=== PATIENT | male | born 1960 | race Caucasian/White ===

== ENCOUNTER 2017-04-09 09:59 | Outpatient (CLI) | payer MEDICARE ==
[2017-04-09] MEDS ORDERED: Iopamidol 370 76% 100 ML VIAL ONE (15:02)
--- NOTE | 2017-04-09 15:03 | CT ---
CT CHEST WITH IV CONTRAST: Date: 04/09/17 HISTORY: Follow-up, neoplasm of overlapping sites of oropharynx, squamous cell carcinoma head/neck. COMPARISON: 01/17/17. FINDINGS: Mediastinal lymphadenopathy is stable with the largest lymph node measuring about 2.9 cm. No hilar o r axillary mass or lymphadenopathy seen. No pleural or pericardial effusions are identified. Scarrin g is seen predominantly in the right upper lobe. The patchy infiltrates in the lower and mid lung zo homero have improved in the interim. There is a stable 6.0 mm parenchymal nodule in the right upper lob e. Postop changes in the stomach are again seen in the upper abdominal tomograms. There are degenerativ e changes in the spine. IMPRESSION: Interval improvement in the lung infiltrates since 01/17/17. POS: [facility]
== END 2017-04-09 10:00 | disposition home or self-care (01) ==
LOC: CT 09:59
PROVIDERS: ATTEND Internal Medicine Hematology & Oncology
DX: C10.8 Malignant neoplasm of overlapping sites of oropharynx (principal); C32.8 Malignant neoplasm of overlapping sites of larynx
CPT/HCPCS: 71260

== ENCOUNTER 2018-08-16 00:39 | Outpatient (CLI) | payer MEDICARE ==
[2018-08-16 12:16] LABS: Hemoglobin 11.7 g/dL (14.0-18.0); Mean Corpuscular HGB CONC 32.8 g/dL (32.0-36.0); Mean Corpuscular Hemoglobin 29.6 pg (27.0-31.0); Mean Corpuscular Volume 90.3 fL (78.0-98.0); Mean Platelet Volume 6.9 fL (7.4-10.4); Platelet Count 238 thou/uL (130-400); RBC Distribution Width 12.3 % (11.5-14.5); Red Blood Cell (RBC) Count 3.95 mill/uL (4.70-6.10); White Blood Cell (WBC) Count 4.3 thou/uL (4.8-10.8)
[2018-08-16 12:39] LABS: Anion Gap 12 mmol/L (10-20); BUN (Urea Nitrogen) 9 mg/dL (8.4-25.7); Calc. Creatinine Clearance 0 mL/min (70-130); Calcium 9.7 mg/dL (7.8-10.44); Carbon Dioxide 28 mmol/L (22-29); Chloride 102 mmol/L (98-107); Estimated GFR-MDRD Greater than 90; Glucose 131 mg/dL (70-105); Potassium 4.5 mmol/L (3.5-5.1); Sodium 137 mmol/L (136-145)
== END 2018-08-16 00:40 | disposition home or self-care (01) ==
LOC: LABBT 00:39
PROVIDERS: ATTEND Neurological Surgery
DX: Z01.812 Encounter for preprocedural laboratory examination (principal); M47.12 Other spondylosis with myelopathy, cervical region
CPT/HCPCS: 80048; 85027

== ENCOUNTER 2018-08-16 11:00 | Inpatient (IN) | payer MEDICARE ==
[2018-08-20] MEDS ORDERED: Levofloxacin 500 mg/D5W 100 ml Premix Bag ONE (07:14)
[2018-08-20] MEDS ORDERED: Clindamycin/D5W 900 mg/50 ml Premix Bag ONE (07:14)
[2018-08-20] MEDS ORDERED: Bacitracin Zinc Ointment 30 gm TUBE ONE (08:25)
[2018-08-20] MEDS ORDERED: Sodium Chloride 0.9% 10 ML ONE (08:25)
[2018-08-20] MEDS ORDERED: Fentanyl 250 MCG/5 ML VIAL ONE (08:33)
[2018-08-20] MEDS ORDERED: Fentanyl 100 MCG/2 ML VIAL ONE (10:31)
[2018-08-20] MEDS ORDERED: Promethazine HCl 25 MG/ML VIAL IM PRN ×3 (10:32→13:27)
[2018-08-20] MEDS ORDERED: Ondansetron HCl/PF 4 MG/2 ML Vial IVP PRN (10:32)
[2018-08-20] MEDS ORDERED: Promethazine HCl 25 MG/ML VIAL SLOW IVP PRN (10:32)
[2018-08-20] MEDS ORDERED: fentaNYL Citrate/PF 2,000 MCG in Sodium Chloride 0.9% 60 ML IV PRN (10:33)
[2018-08-20] MEDS ORDERED: diphenhydrAMINE 50 MG/ML VIAL IM PRN (10:33)
[2018-08-20] MEDS ORDERED: diphenhydrAMINE 50 MG/ML VIAL IVP PRN ×2 (10:33→13:27)
[2018-08-20] MEDS ORDERED: Ondansetron PF 4 MG/2 ML Vial IVP PRN ×2 (10:33→13:27)
[2018-08-20] MEDS ORDERED: Naloxone HCl 0.4 mg/ml Vial IV PRN (10:33)
[2018-08-20] MEDS ORDERED: diphenhydrAMINE 25 MG CAP PO PRN ×2 (10:33→13:27)
[2018-08-20] MEDS ORDERED: HYDROmorphone 2 MG/ML VIAL ONE (10:40)
[2018-08-20] MEDS ORDERED: Communication Order-Pharmacy FS SCH (10:45)
[2018-08-20] MEDS ORDERED: Ketamine 50 MG/ML (10ML VIAL) ONE (11:16)
--- NOTE | 2018-08-20 11:43 | OP ---
DATE OF PROCEDURE: 08/20/2018 OPERATIONS ADMINISTRATIVE ASSISTANT: Harris. PROCEDURES PERFORMED: 1. C3-C4 and C6-C7 posterior cervical laminectomy. 2. Posterior arthrodesis. 3. Lateral mass screw instrumentation. 4. Demineralized bone matrix and local morselized autograft, C3-C4 and C6-C7. DESCRIPTION OF PROCEDURE: The patient was brought into the operating room and intubated. He was rolled in a prone position on gel-filled chest rolls. A single incision was made, exposing C3 through C7 and our level was confirmed by x-ray. We performed complete C7 and complete C6 laminectomies and then similarly performed complete C4 and complete C3 laminectomies, completely decompressing the spinal cord at these levels. We then placed a lateral mass screws at C3-C4 and at C6-C7 and placed small rods at C3-C4 and at C6-C7, connected by nuts, which were final tightened. The wound was then extensively irrigated. Maximum hemostasis was secured. The left lateral surfaces were prepared for the purpose of arthrodesis and a combination of demineralized bone matrix and local morselized autograft was laid over the laminar and posterolateral surfaces for the purpose of arthrodesis at C3-C4 and C6-C7. The wound was extensively irrigated. Maximum hemostasis was secured. Vancomycin powder was applied and the wound was closed over a drain. . Job ID: [id number]
[2018-08-20] MEDS ORDERED: Glycopyrrolate 0.2 MG/ML 5 ML SYRINGE ONE (13:08)
[2018-08-20] MEDS ORDERED: Lidocaine 1% PF 5 ML VIAL ONE (13:08)
[2018-08-20] MEDS ORDERED: Ondansetron PF 4 MG/2 ML Vial ONE (13:08)
[2018-08-20] MEDS ORDERED: Rocuronium Bromide 10 MG/ML (10ML VIAL) ONE (13:08)
[2018-08-20] MEDS ORDERED: PROPOFOL 200 MG/20 ML VIAL ONE (13:08)
[2018-08-20] MEDS ORDERED: Milk Of Magnesia 30 ML UDCUP PO PRN (13:27)
[2018-08-20] MEDS ORDERED: Promethazine 25 MG TAB PO PRN (13:27)
[2018-08-20] MEDS ORDERED: Mag-Al 1200 mg/1200 mg/30 ML UDCUP PO PRN (13:27)
[2018-08-20] MEDS ORDERED: HYDROcodone/Acetaminophen 10/325 mg Tablet PO PRN ×2 (13:27)
[2018-08-20] MEDS ORDERED: Promethazine HCl 12.5 MG SUPP PR PRN (13:27)
[2018-08-20 15:10] VITALS: BMI 22.7
[2018-08-20] MEDS: Sodium Chloride 0.9% 1,000 ML IV SCH (15:29)
--- NOTE | 2018-08-20 15:32 | PDOC.PN ---
- Subjective Encounter Start Date: 08/20/18 Encounter Start Time: 15:30 Subjective: no sob or chest pain -: has pain at operative site - Objective MAR Reviewed: Yes Vital Signs & Weight: Vital Signs (12 hours) Temp Pulse Resp BP Pulse Ox 08/20/18 14:15 97.3 F L 78 16 150/83 H 98 Weight Weight 145 lb Phys Exam - Physical Examination HEENT: PERRLA, moist MMs Neck: no JVD post neck surg site in dressing Respiratory: no wheezing, no rales Cardiovascular: RRR, no significant murmur Gastrointestinal: soft, non-tender, positive bowel sounds morphine pump+ Musculoskeletal: no edema, pulses present Neurological: non-focal, moves all 4 limbs Psychiatric: normal affect, A&O x 3 Dx/Plan (1) s/p cervical decompressive laminectomy Status: Acute Comment: C3-4, C6-7 (2) H/O tongue cancer Status: Chronic (3) CAD (coronary artery disease) Code(s): I25.10 - ATHSCL HEART DISEASE OF [place] CORONARY ARTERY W/O ANG PCTRS Status: Chronic Qualifiers: Coronary Disease-Associated Artery/Lesion type: bypass graft [place] vs. transplanted heart: [place] heart Associated angina: without angina Qualified Code(s): I25.810 - Atherosclerosis of coronary artery bypass graft(s) without angina pectoris (4) Dyslipidemia Code(s): E78.5 - HYPERLIPIDEMIA, UNSPECIFIED Status: Chronic (5) Chronic pain syndrome Code(s): G89.4 - CHRONIC PAIN SYNDROME Status: Chronic (6) DM type 2 (diabetes mellitus, type 2) Status: Chronic Qualifiers: Diabetes mellitus [facility] insulin use: without systems software designer use Diabetes mellitus complication status: without complication Qualified Code(s): E11.9 - Type 2 diabetes mellitus without complications (7) Hypertension Code(s): I10 - ESSENTIAL (PRIMARY) HYPERTENSION Status: Chronic Qualifiers: Hypertension type: essential hypertension Qualified Code(s): I10 - Essential (primary) hypertension (8) h/o gastric sleeve Status: Chronic - Plan is on multiple narcotics including morphine pump, per anesthesia advice -: PT to mobilize as tolerated -: post gastric sleeve his bmi has come down from 40 to 22 -: is not on antidm, htn or dyslip meds now -: gentle iv hydration * . Review of Systems - Medications/Allergies Allergies/Adverse Reactions: Allergies Allergy/AdvReac Type Severity Reaction Status Date / Time Penicillins Allergy Severe ? Verified 01/04/16 15:48 Medications: Current Medications Hydrocodone Bitart/Acetaminophen ([place] 10/325) 1 tab PO Q4H PRN PRN Reason: PAIN (1-3) Hydrocodone Bitart/Acetaminophen ([place] 10/325) 2 tab PO Q4H PRN PRN Reason: PAIN (4-6) Al Hydroxide/Mg Hydroxide (Maalox) 30 ml PO Q4H PRN PRN Reason: Heartburn or Indigestion Cyclobenzaprine HCl (Flexeril) 10 mg PO Q8H PRN PRN Reason: Muscle Spasm Diphenhydramine HCl (Benadryl) 25 mg IVP Q3H PRN PRN Reason: Itching Diphenhydramine HCl (Benadryl) 25 mg PO Q3H PRN PRN Reason: Itching Diphenhydramine HCl (Benadryl) 25 mg IM Q3H PRN PRN Reason: Itching Fentanyl Citrate 2,000 mcg/ (Sodium Chloride) 100 mls @ 0 mls/hr IV INF PRN PRN Reason: Pain Sodium Chloride (Normal Saline 0.9%) 1,000 mls @ 75 mls/hr IV .[id number] [facility] Last Admin: 08/20/18 15:29 Dose: 1,000 mls Clindamycin Phosphate/Dextrose (900 mg/ Device) 50 mls @ 100 mls/hr IVPB Q8H [facility] Stop: 08/20/18 23:29 Ketorolac Tromethamine (Toradol) 15 mg IVP Q6HR [facility] Stop: 08/22/18 12:01 Magnesium Hydroxide (Milk Of Magnesium) 30 ml PO Q12H PRN PRN Reason: Constipation Miscellaneous Information (Communication Order-Pharmacy) 1 each FS ONE [facility] Stop: 08/20/18 23:00 Naloxone HCl (Narcan) 0.2 mg IV Q5MIN PRN PRN Reason: Opiate Reversal Ondansetron HCl (Zofran) 4 mg IVP Q6H PRN PRN Reason: Nausea/Vomiting Promethazine HCl (Phenergan) 12.5 mg IM Q4H PRN PRN Reason: Nausea/Vomiting Promethazine HCl (Phenergan) 12.5 mg PO Q4H PRN PRN Reason: Nausea/Vomiting Promethazine HCl (Phenergan Suppository) 12.5 mg TN Q4H PRN PRN Reason: Nausea/Vomiting Sodium Chloride (Flush - Normal Saline) 10 ml IVF Q12HR [facility] Sodium Chloride (Flush - Normal Saline) 10 ml IVF PRN PRN PRN Reason: Saline Flush Zolpidem Tartrate (Ambien) 5 mg PO HSPRN PRN PRN Reason: Insomnia
[2018-08-20] MEDS: Clindamycin/D5W 900 MG in Premix Bag 1 BAG IVPB SCH ×2 (15:43→23:28)
[2018-08-20] MEDS: Ketorolac Tromethamine 30 MG/ML VIAL IVP SCH ×2 (18:51→23:29)
[2018-08-20] MEDS: Zolpidem Tartrate 5 MG TAB PO PRN (20:27)
[2018-08-20] MEDS: Cyclobenzaprine 10 MG TAB PO PRN (23:31)
[2018-08-21] MEDS: Sodium Chloride 0.9% 1,000 ML IV SCH ×2 (03:44→15:34)
[2018-08-21] MEDS: Ketorolac Tromethamine 30 MG/ML VIAL IVP SCH ×4 (05:30→23:14)
--- NOTE | 2018-08-21 08:08 | PRG ---
DATE OF SERVICE: 08/21/2018 SUBJECTIVE: The patient is a 58-year-old male, status post posterior decompression and fusion of C3-C4 and C6-C7. He is postoperative day #1. ASPEN drain was placed intraoperatively and 80 mL of drainage output overnight. The patient has a history of chronic pain with morphine pump, therefore, Anesthesia was consulted for assistance with pain management. He was started on a OIL TRANSPORT DRIVER per the recommendations. He reports his pain has been well controlled. The patient does have some dysphagia, but he is tolerating a soft diet and oral p.o. He has been up ambulating with his walker without any difficulty. The patient is awake, alert, and comfortable, in no acute distress. He has free active range of motion of all extremities. No focal motor weakness or reflex asymmetry. His incision is dry and intact. We will continue to advance the patient's diet, work on pain control, and mobilize the patient today. I anticipate that his ASPEN drain can be removed in the morning and he can be discharged home. Job ID: [id number]
--- NOTE | 2018-08-21 12:56 | PDOC.PN ---
- Subjective Encounter Start Date: 08/21/18 Encounter Start Time: 08:00 Subjective: no new complaints -: has no sob or chest pain -: is amb in room - Objective MAR Reviewed: Yes Vital Signs & Weight: Vital Signs (12 hours) Temp Pulse Resp BP Pulse Ox 08/21/18 08:00 98.0 F 68 18 103/63 96 08/21/18 04:22 97.6 F 70 16 126/75 96 Weight Weight 145 lb I&O: 08/20/18 08/21/18 08/22/18 06:59 06:59 06:59 Intake Total 2580 Output Total 80 Balance 2500 Phys Exam - Physical Examination HEENT: PERRLA, moist MMs Neck: no JVD Respiratory: no wheezing, no rales Cardiovascular: RRR, no significant murmur Gastrointestinal: soft, non-tender, positive bowel sounds Musculoskeletal: no edema, pulses present Neurological: non-focal, moves all 4 limbs Psychiatric: normal affect, A&O x 3 Dx/Plan (1) s/p cervical decompressive laminectomy Status: Acute Comment: C3-4, C6-7 (2) H/O tongue cancer Status: Chronic (3) CAD (coronary artery disease) Code(s): I25.10 - ATHSCL HEART DISEASE OF [place] CORONARY ARTERY W/O ANG PCTRS Status: Chronic Qualifiers: Coronary Disease-Associated Artery/Lesion type: bypass graft [place] vs. transplanted heart: [place] heart Associated angina: without angina Qualified Code(s): I25.810 - Atherosclerosis of coronary artery bypass graft(s) without angina pectoris (4) Dyslipidemia Code(s): E78.5 - HYPERLIPIDEMIA, UNSPECIFIED Status: Chronic (5) Chronic pain syndrome Code(s): G89.4 - CHRONIC PAIN SYNDROME Status: Chronic (6) DM type 2 (diabetes mellitus, type 2) Status: Chronic Qualifiers: Diabetes mellitus mcc insulin use: without mcc use Diabetes mellitus complication status: without complication Qualified Code(s): E11.9 - Type 2 diabetes mellitus without complications (7) Hypertension Code(s): I10 - ESSENTIAL (PRIMARY) HYPERTENSION Status: Chronic Qualifiers: Hypertension type: essential hypertension Qualified Code(s): I10 - Essential (primary) hypertension (8) h/o gastric sleeve Status: Chronic - Plan hemostable -: dc plan per nsx adv -: to continue fentanyl, morphine pump, norco, toradol prn -: he is not on any medications for dm,htn or dyslip after losing sig weight -: will f/u, suggest bmp * . Review of Systems - Medications/Allergies Allergies/Adverse Reactions: Allergies Allergy/AdvReac Type Severity Reaction Status Date / Time Penicillins Allergy Severe ? Verified 01/04/16 15:48 Medications: Current Medications Hydrocodone Bitart/Acetaminophen ([place] 10/325) 1 tab PO Q4H PRN PRN Reason: PAIN (1-3) Hydrocodone Bitart/Acetaminophen ([place] 10/325) 2 tab PO Q4H PRN PRN Reason: PAIN (4-6) Al Hydroxide/Mg Hydroxide (Maalox) 30 ml PO Q4H PRN PRN Reason: Heartburn or Indigestion Cyclobenzaprine HCl (Flexeril) 10 mg PO Q8H PRN PRN Reason: Muscle Spasm Last Admin: 08/20/18 23:31 Dose: 10 mg Diphenhydramine HCl (Benadryl) 25 mg IVP Q3H PRN PRN Reason: Itching Diphenhydramine HCl (Benadryl) 25 mg PO Q3H PRN PRN Reason: Itching Diphenhydramine HCl (Benadryl) 25 mg IM Q3H PRN PRN Reason: Itching Fentanyl Citrate 2,000 mcg/ (Sodium Chloride) 100 mls @ 0 mls/hr IV INF PRN PRN Reason: Pain Sodium Chloride (Normal Saline 0.9%) 1,000 mls @ 75 mls/hr IV .[id number] [facility] Last Admin: 08/21/18 03:44 Dose: Not Given Ketorolac Tromethamine (Toradol) 15 mg IVP Q6HR [facility] Stop: 08/22/18 12:01 Last Admin: 08/21/18 11:42 Dose: 15 mg Magnesium Hydroxide (Milk Of Magnesium) 30 ml PO Q12H PRN PRN Reason: Constipation Naloxone HCl (Narcan) 0.2 mg IV Q5MIN PRN PRN Reason: Opiate Reversal Ondansetron HCl (Zofran) 4 mg IVP Q6H PRN PRN Reason: Nausea/Vomiting Promethazine HCl (Phenergan) 12.5 mg IM Q4H PRN PRN Reason: Nausea/Vomiting Promethazine HCl (Phenergan) 12.5 mg PO Q4H PRN PRN Reason: Nausea/Vomiting Promethazine HCl (Phenergan Suppository) 12.5 mg NM Q4H PRN PRN Reason: Nausea/Vomiting Sodium Chloride (Flush - Normal Saline) 10 ml IVF Q12HR [facility] Last Admin: 08/21/18 08:35 Dose: Not Given Sodium Chloride (Flush - Normal Saline) 10 ml IVF PRN PRN PRN Reason: Saline Flush Zolpidem Tartrate (Ambien) 5 mg PO HSPRN PRN PRN Reason: Insomnia Last Admin: 08/20/18 20:27 Dose: 5 mg
[2018-08-21 13:53] LABS: Anion Gap 9 mmol/L (10-20); BUN (Urea Nitrogen) 7 mg/dL (8.4-25.7); Calc. Creatinine Clearance 104 mL/min (70-130); Calcium 9.4 mg/dL (7.8-10.44); Carbon Dioxide 29 mmol/L (22-29); Chloride 103 mmol/L (98-107); Estimated GFR-MDRD Greater than 90; Glucose 140 mg/dL (70-105); Potassium 4.4 mmol/L (3.5-5.1); Sodium 137 mmol/L (136-145)
[2018-08-21] MEDS: Zolpidem Tartrate 5 MG TAB PO PRN (22:26)
[2018-08-22] MEDS: Cyclobenzaprine 10 MG TAB PO PRN (05:15)
[2018-08-22] MEDS: Ketorolac Tromethamine 30 MG/ML VIAL IVP SCH (05:15)
[2018-08-22] MEDS: Sodium Chloride 0.9% 1,000 ML IV SCH (05:16)
[2018-08-22 07:54] VITALS: TEMP 97.8
[2018-08-22 11:34] VITALS: BP 112/76
--- NOTE | 2018-08-22 14:01 | DIS ---
DATE OF ADMISSION: 08/20/2018 DATE OF DISCHARGE: 08/22/2018 The patient is a 58-year-old male, status post C3 to C4 and C6 to C7 posterior decompression and fusion. Following the surgery, he was transitioned to the Med/Surg floor, where his pain was managed with FIELD SERVICE SPECIALIST with the assistance of anesthesia. He was ambulatory throughout the department without any difficulty and he was tolerating p.o. He did have ASPEN drain placed intraoperatively and this trended down nicely. ASPEN drain was removed on postoperative day #2. The patient is sitting up comfortably this morning, awake and alert, in no acute distress. Free active range of motion of all extremities. No focal motor weakness. No reflex asymmetry. Incision is dry and intact. We will plan to dismiss the patient to home. I have discussed home care precautions and will follow up with the patient in 2 weeks. Job ID: [id number]
--- NOTE | 2018-08-22 14:57 | PDOC.PN ---
- Subjective Encounter Start Date: 08/22/18 Encounter Start Time: 07:25 Subjective: feels better, no sob -: is ambulating in room - Objective MAR Reviewed: Yes Vital Signs & Weight: Vital Signs (12 hours) Temp Pulse Resp BP Pulse Ox 08/22/18 11:33 97.8 F 83 20 112/76 99 08/22/18 07:53 97.8 F 74 16 117/79 95 08/22/18 04:33 97.7 F 80 20 127/77 97 Weight Weight 145 lb I&O: 08/21/18 08/22/18 08/23/18 06:59 06:59 06:59 Intake Total 2580 3280 Output Total 80 95 10 Balance 2500 3185 -10 Result Diagrams: 08/21/18 13:14 Phys Exam - Physical Examination HEENT: PERRLA, moist MMs Neck: no JVD, supple Respiratory: no wheezing, no rales Cardiovascular: RRR, no significant murmur Gastrointestinal: soft, non-tender, positive bowel sounds Musculoskeletal: no edema, pulses present Neurological: non-focal, moves all 4 limbs Psychiatric: normal affect, A&O x 3 Dx/Plan (1) s/p cervical decompressive laminectomy Status: Acute Comment: C3-4, C6-7 (2) H/O tongue cancer Status: Chronic (3) CAD (coronary artery disease) Code(s): I25.10 - ATHSCL HEART DISEASE OF [place] CORONARY ARTERY W/O ANG PCTRS Status: Chronic Qualifiers: Coronary Disease-Associated Artery/Lesion type: bypass graft [place] vs. transplanted heart: [place] heart Associated angina: without angina Qualified Code(s): I25.810 - Atherosclerosis of coronary artery bypass graft(s) without angina pectoris (4) Dyslipidemia Code(s): E78.5 - HYPERLIPIDEMIA, UNSPECIFIED Status: Chronic (5) Chronic pain syndrome Code(s): G89.4 - CHRONIC PAIN SYNDROME Status: Chronic (6) DM type 2 (diabetes mellitus, type 2) Status: Chronic Qualifiers: Diabetes mellitus longterm insulin use: without emt intermediate use Diabetes mellitus complication status: without complication Qualified Code(s): E11.9 - Type 2 diabetes mellitus without complications (7) Hypertension Code(s): I10 - ESSENTIAL (PRIMARY) HYPERTENSION Status: Chronic Qualifiers: Hypertension type: essential hypertension Qualified Code(s): I10 - Essential (primary) hypertension (8) h/o gastric sleeve Status: Chronic - Plan hemostable -: dc plan per nsx adv -: to continue all home meds as before * .
== END 2018-08-22 12:44 | disposition home or self-care (01) | DRG 473 ==
LOC: SURG A 08-20 06:18
PROVIDERS: ADMIT Neurological Surgery; ATTEND Neurological Surgery
PROC: 0RG2071 Fusion of 2 or more Cervical Vertebral Joints with Autologous Tissue Substitute, Posterior Approach, Posterior Column, Open Approach (ICD-10-PCS; principal; 2018-08-20)
DX: M47.12 Other spondylosis with myelopathy, cervical region (principal); I25.10 Atherosclerotic heart disease of native coronary artery without angina pectoris; E78.5 Hyperlipidemia, unspecified; G89.4 Chronic pain syndrome; E11.9 Type 2 diabetes mellitus without complications; I10 Essential (primary) hypertension; Z98.84 Bariatric surgery status; Z85.810 Personal history of malignant neoplasm of tongue
CPT/HCPCS: 36415; 76000; 80048; C1713; C1768; J1170; J1885; J1956; J2001; J2405; J2704; J3010; J3370; J3490; J7050

== ENCOUNTER 2018-09-03 11:01 | Outpatient (CLI) | payer MEDICARE ==
--- NOTE | 2018-09-03 11:38 | RAD ---
THREE VIEWS CERVICAL SPINE: History: Cervical spondylosis. M47.12 FINDINGS: AP, lateral, and open mouth odontoid views of the cervical spine demonstrates posterior surgical stap les seen over the posterior aspect of the neck. Right sided pedicle screws seen at the C3-4 and C6-7 levels. There appears to be C5-6 disc space height loss and possible fusion from previous surgery or changes of spondylosis which is a result of secondary fusion at C5-6. There is minimal anterolisthesis of C2 on C3. IMPRESSION: C3-4 and C6-7 post-surgical changes. POS: [facility]
== END 2018-09-03 11:02 | disposition home or self-care (01) ==
LOC: TBSIIMAG 11:01
PROVIDERS: ATTEND Neurological Surgery
DX: M47.12 Other spondylosis with myelopathy, cervical region (principal); Z98.890 Other specified postprocedural states
CPT/HCPCS: 72040

== ENCOUNTER 2018-12-26 15:24 | Outpatient (CLI) | payer MEDICARE ==
--- NOTE | 2018-12-26 17:26 | RAD ---
CERVICAL SPINE THREE VIEWS: INDICATIONS: Cervical spinal stenosis. COMPARISON: 09/03/2018 FINDINGS: Pedicle screws are seen on the right at C3-C4 and at C6-C7. Degenerative changes are noted with disk narrowing and hypertrophic spurring. There is suggestion of slight kyphosis at C3-C4, more prompt t solomon on the prior exam, and the posterior spondylosis at C3-C4 appears more pronounced than on the rec ent exam of 09/03/2018. CT may be of benefit to better define this level, if indicated. POS: [facility]
== END 2018-12-26 15:25 | disposition home or self-care (01) ==
LOC: TBSIIMAG 15:24
PROVIDERS: ATTEND Neurological Surgery
DX: M48.02 Spinal stenosis, cervical region (principal)
CPT/HCPCS: 72040

== ENCOUNTER 2019-02-26 14:51 | Outpatient (CLI) | payer MEDICARE ==
--- NOTE | 2019-02-26 16:01 | RAD ---
CERVICAL SPINE 4 VIEWS: Date: 02/26/19 HISTORY: Postop follow-up. COMPARISON: 12/26/18. FINDINGS: Degenerative changes cervical spine. Disc narrowing and hypertrophic changes are prominent at C3-4, C 4-5, C5-6, and C6-7. Pedicle screws on the right noted at C3-4 and C6-7. Spondylytic changes are appa rent. Slight posterolisthesis at C4-5 appears stable. IMPRESSION: Stable degenerative and postoperative changes of cervical spine. POS: [facility]
== END 2019-02-26 14:52 | disposition home or self-care (01) ==
LOC: TBSIIMAG 14:51
PROVIDERS: ATTEND Neurological Surgery
DX: M47.22 Other spondylosis with radiculopathy, cervical region (principal); Z98.890 Other specified postprocedural states
CPT/HCPCS: 72040